=== PATIENT | male | born 1965 ===

== ENCOUNTER 2022-04-09 09:15 | Inpatient (IN) | payer OTHER ==
[~2022-04-09] VITALS: Ht 177.8 cm; Wt 93.0 kg
[2022-04-09] MEDS ORDERED: TRIJARDY XR 121 EACH PO (10:40)
[2022-04-09] MEDS ORDERED: TRULICITY4.5 MG/0.5 (10:41)
[2022-04-09] MEDS ORDERED: LIPITOR20 MG PO (10:41)
[2022-04-09] MEDS ORDERED: LEVEMIR100 UNIT/1 (10:41)
[2022-04-09] MEDS ORDERED: COZAAR100 MG PO (10:42)
[2022-04-16] MEDS ORDERED: PERCOCET 5-3251 EACH PO (13:37)
== END 2022-04-16 16:58 | disposition home or self-care (01) | DRG 331 ==
LOC: SURH 04-14 09:15 → O/R 04-14 09:25 → SURH 04-14 12:00 → SURG 04-14 19:30
PROVIDERS: ADMIT Surgery; ATTEND Surgery
PROC: 0DBP4ZZ Excision of Rectum, Percutaneous Endoscopic Approach (ICD-10-PCS; 2022-04-14)
PROC: 07BB4ZZ Excision of Mesenteric Lymphatic, Percutaneous Endoscopic Approach (ICD-10-PCS; 2022-04-14)
PROC: 0DBU4ZZ Excision of Omentum, Percutaneous Endoscopic Approach (ICD-10-PCS; 2022-04-14)
PROC: 0DJD8ZZ Inspection of Lower Intestinal Tract, Via Natural or Artificial Opening Endoscopic (ICD-10-PCS; 2022-04-14)
PROC: 4A12X4Z Monitoring of Cardiac Electrical Activity, External Approach (ICD-10-PCS; 2022-04-14)
PROC: 0DTN4ZZ Resection of Sigmoid Colon, Percutaneous Endoscopic Approach (ICD-10-PCS; principal; 2022-04-14 12:00)
DX: C19 Malignant neoplasm of rectosigmoid junction (principal); R59.0 Localized enlarged lymph nodes; I10 Essential (primary) hypertension; E11.9 Type 2 diabetes mellitus without complications

== ENCOUNTER 2022-10-24 11:16 | Emergency (ER) | payer OTHER ==
[~2022-10-24] VITALS: Ht 177.8 cm; Wt 90.7 kg
[~2022-10-24 11:16] MED LIST: COZAAR100 MG PO; LEVEMIR100 UNIT/1; LIPITOR20 MG PO; PERCOCET 5-3251 EACH PO; TRIJARDY XR 121 EACH PO; TRULICITY4.5 MG/0.5
[2022-10-24] MEDS ORDERED: NAPROXEN500 MG PO ×2 (14:58→15:06)
== END 2022-10-24 15:20 | disposition home or self-care (01) ==
LOC: ER 11:16
DX: S42.002A Fracture of unspecified part of left clavicle, initial encounter for closed fracture (principal); W05.1XXA Fall from non-moving nonmotorized scooter, initial encounter; Y93.9 Activity, unspecified; Y92.9 Unspecified place or not applicable; Y99.9 Unspecified external cause status; M25.512 Pain in left shoulder; S99.912A Unspecified injury of left ankle, initial encounter